=== PATIENT | male | born 1960 | race African-American/Black ===

== ENCOUNTER 2019-02-03 17:42 | Emergency (ER) | payer OTHER ==
--- NOTE | 2019-02-03 17:51 | PDOC ---
History of Present Illness - General Chief Complaint: Back Pain Stated Complaint: BACK PAIN Time Seen by Provider: 02/03/19 17:48 History Source: Patient Exam Limitations: No Limitations - History of Present Illness Initial Comments: 02/03/19 18:21 Chief complaint: Pelvic and chest pain Patient is a 58-year-old male who had prostate surgery for cancer 1 year ago with radiation and is on Lupron for 1 year. Patient states that he gets some body aches on and off, headache from the Lupron but in the last 3 days he has had severe right-sided chest pain that hurts when he breathes or moves. Patient also complaining of pelvic pain. No fever. Patient looks very uncomfortable. Patient drove back and forth to [place] during this time. Denies any leg swelling or calf pain no family history of blood clots. GENERAL/CONSTITUTIONAL: No fever, weakness. dizziness HEAD, EYES, EARS, NOSE AND THROAT: No change in vision. No ear pain or discharge. No sore throat. CARDIOVASCULAR: +chest pain RESPIRATORY: No shortness of breath or cough GASTROINTESTINAL: No pain, nausea, vomiting, diarrhea or constipation GENITOURINARY: No dysuria MUSCULOSKELETAL: No neck or back pain SKIN: No rash NEUROLOGIC: No headache, vertigo, loss of consciousness, or loss of sensation. GENERAL: The patient is awake, alert, and fully oriented, in no acute distress. HEAD: Normal with no signs of trauma. EYES: Pupils equal, round and reactive to light, sclera anicteric, conjunctiva clear. ENT: pharynx: no erythema, no exudate, uvula midline NECK: supple CHEST: clear, + right lower axilla rib tenderness, no subcutaneous emphysema, no ecchymosis, rr ABD: soft, nontender BACK: no tenderness or signs of injury EXTREMITIES: Normal range of motion, no edema. NEUROLOGICAL: Normal speech, normal gait. Cranial nerves II through XII grossly intact, no gross focal abnormalities SKIN: Warm, Dry Past History - Past Medical History Allergies/Adverse Reactions: Allergies Allergy/AdvReac Type Severity Reaction Status Date / Time No Known Allergies Allergy Verified 02/03/19 17:53 COPD: No Dialysis: No - Surgical History Cholecystectomy: No Neurologic Surgery: No - Immunization History Immunization Up to Date: No ED Treatment Course - LABORATORY CBC & Chemistry Diagram: 02/03/19 18:30 02/03/19 18:30 Medical Decision Making - Medical Decision Making 02/03/19 18:35 58-year-old male with history of prostate cancer treated with surgery and radiation, on Lupron for 1 year with exquisite right axilla chest pain, pleuritic in nature worse with breathing and movement. pt on hormone therapy, Patient also traveled to [place] and back during this time. Patient is not hypoxic. He also has pelvic/hip pain. Not clear if this is all muscular skeletal or related to his disease. EKG, basic labs, chest x-ray and hip/ pelvic x-ray ordered, patient ordered morphine for pain given the level of discomfort. Signed out to [facility] for further evaluation 02/03/19 19:27 Discharge - Discharge Information Problems reviewed: Yes Clinical Impression/Diagnosis: Back pain Qualifiers: Back pain location: thoracic back pain Chronicity: acute Back pain laterality: right Qualified Code(s): M54.6 - Pain in thoracic spine Condition: Stable - Follow up/Referral Referrals: Dolores Remy MD [Primary Care Provider] - - Patient Discharge Instructions - Post Discharge Activity
[2019-02-03 17:54] VITALS: BMI 25.4
--- NOTE | 2019-02-03 17:54 | PDOC ---
Rapid Medical Evaluation Chief Complaint: Back Pain Time Seen by Provider: 02/03/19 17:48 Medical Evaluation: 02/03/19 17:49 I have performed a brief in-person evaluation of this patient. The patient presents with a chief complaint of: right chest wall and back pain Pertinent physical exam findings: walks with limp/ crooked, tightness to lumbar paravertebral muscles , no fevers / no problems with bowel or bladder I have ordered the following: nothing The patient will proceed to the ED for further evaluation. 02/03/19 17:54 Discharge Disposition - Diagnosis Back pain Qualifiers: Back pain location: low back pain - Discharge Dispostion Condition at time of disposition: Stable - Referrals - Patient Instructions - Post Discharge Activity
[2019-02-03] MEDS ORDERED: morphine CARPU-JECT 4 MG/1 ML DISP.SYRIN IVPUSH ONE (18:30)
[2019-02-03 18:50] LABS: BASO % 0.9 % (0-2.0); EOS % 1.3 % (0-4.5); HEMATOCRIT 31.8 % (35.4-49); HEMOGLOBIN 10.6 GM/dL (11.7-16.9); LYMPH % 22.3 % (8-40); MCH 27.4 pg (25.7-33.7); MCHC 33.1 g/dl (32.0-35.9); MEAN CELL VOLUME 82.7 fl (80-96); MEAN PLT VOLUME 8.6 fl (7.5-11.1); MONO % 9.6 % (3.8-10.2); NEUT % 65.9 % (42.8-82.8); PLATELET COUNT 206 K/MM3 (134-434); RBC 3.85 M/mm3 (4.00-5.60); RDW 14.9 % (11.9-15.9); WHITE BLOOD COUNT 4.1 K/mm3 (4.0-10.0)
[2019-02-03] MEDS ORDERED: morphine SULFATE 4 MG/ML VIAL ONE (18:52)
--- NOTE | 2019-02-03 19:00 | PDOC ---
History of Present Illness - General Chief Complaint: Back Pain Stated Complaint: BACK PAIN Time Seen by Provider: 02/03/19 17:48 History Source: Patient Exam Limitations: No Limitations Past History - Past Medical History Allergies/Adverse Reactions: Allergies Allergy/AdvReac Type Severity Reaction Status Date / Time No Known Allergies Allergy Verified 02/03/19 17:53 COPD: No Dialysis: No - Surgical History Cholecystectomy: No Neurologic Surgery: No - Immunization History Immunization Up to Date: No - Psycho Social/Smoking Cessation Hx Smoking History: Never smoked Have you smoked in the past 12 months: No Information on smoking cessation initiated: No Hx Alcohol Use: No Drug/Substance Use Hx: No *Physical Exam - Vital Signs Last Vital Signs Temp Pulse Resp BP Pulse Ox 98.1 F 93 H 18 136/77 100 02/03/19 17:50 02/03/19 17:50 02/03/19 17:50 02/03/19 17:50 02/03/19 17:50 - Physical Exam General Appearance: No: Apparent Distress Respiratory/Chest: positive: Lungs Clear, Normal Breath Sounds. negative: Respiratory Distress Cardiovascular: positive: Regular Rhythm, Regular Rate, S1, S2. negative: Murmur Musculoskeletal: negative: CVA Tenderness, Muscle Spasm, Vertebral Tenderness Extremity: negative: Pedal Edema, Swelling, Calf Tenderness Neurologic: positive: Alert, Normal Mood/Affect, Other (normal gait) ED Treatment Course - LABORATORY CBC & Chemistry Diagram: 02/03/19 18:30 02/03/19 18:30 - ADDITIONAL ORDERS Additional order review: 02/03/19 18:30 RBC 3.85 L MCV 82.7 MCHC 33.1 RDW 14.9 MPV 8.6 Neutrophils % 65.9 Lymphocytes % 22.3 Monocytes % 9.6 Eosinophils % 1.3 Basophils % 0.9 - RADIOLOGY Radiology Studies Ordered: Category Date Time Status CHEST CTA [CT] Stat CT Scan 02/03/19 18:57 Ordered SPINE-LUMBAR SACRAL [RAD] Stat Radiology 02/03/19 18:57 Ordered - Medications Given in the ED: ED Medications Discontinued Medications Generic Name Dose Route Start Last Admin Trade Name Freq PRN Reason Stop Dose Admin Morphine Sulfate 4 mg 02/03/19 18:30 02/03/19 18:55 Morphine Injection - IVPUSH 02/03/19 18:31 4 mg ONCE ONE Administration Medical Decision Making - Medical Decision Making Patient signed out to 02/03/19 19:01 Discharge - Discharge Information Clinical Impression/Diagnosis: Back pain Qualifiers: Back pain location: low back pain Condition: Stable - Follow up/Referral Referrals: Dolores Remy MD [Primary Care Provider] - - Patient Discharge Instructions - Post Discharge Activity
[2019-02-03 19:02] LABS: INR 1.1 (0.83-1.09)
[2019-02-03 19:05] LABS: ACTIVATED PTT 31.7 SECONDS (25.2-36.5)
--- NOTE | 2019-02-03 19:06 | PDOC ---
*Physical Exam - Vital Signs Last Vital Signs Temp Pulse Resp BP Pulse Ox 98.1 F 93 H 18 136/77 100 02/03/19 17:50 02/03/19 17:50 02/03/19 17:50 02/03/19 17:50 02/03/19 17:50 - Physical Exam General Appearance: No: Apparent Distress Respiratory/Chest: positive: Lungs Clear, Normal Breath Sounds. negative: Respiratory Distress Cardiovascular: positive: Regular Rhythm, Regular Rate, S1, S2. negative: Murmur Gastrointestinal/Abdominal: positive: Normal Bowel Sounds, Soft. negative: Tender, Distended, Guarding, Rebound Musculoskeletal: negative: CVA Tenderness, Muscle Spasm, Vertebral Tenderness Extremity: negative: Pedal Edema, Swelling, Calf Tenderness Neurologic: positive: Alert, Normal Mood/Affect, Other (normal gait) ED Treatment Course - LABORATORY CBC & Chemistry Diagram: 02/03/19 18:30 02/03/19 18:30 - ADDITIONAL ORDERS Additional order review: 02/03/19 18:30 RBC 3.85 L MCV 82.7 MCHC 33.1 RDW 14.9 MPV 8.6 Neutrophils % 65.9 Lymphocytes % 22.3 Monocytes % 9.6 Eosinophils % 1.3 Basophils % 0.9 - RADIOLOGY Radiology Studies Ordered: Category Date Time Status CHEST CTA [CT] Stat CT Scan 02/03/19 18:57 Ordered SPINE-LUMBAR SACRAL [RAD] Stat Radiology 02/03/19 18:57 Ordered - Medications Given in the ED: ED Medications Discontinued Medications Generic Name Dose Route Start Last Admin Trade Name Freq PRN Reason Stop Dose Admin Morphine Sulfate 4 mg 02/03/19 18:30 02/03/19 18:55 Morphine Injection - IVPUSH 02/03/19 18:31 4 mg ONCE ONE Administration Medical Decision Making - Medical Decision Making Patient signed out to me by IVA Benedict Briefly, this is 58 y/o M hx of prostate CA s/p surgery 1 year ago and currently on Lupron presents with R sided back pain radiating at times to R chest and sometimes to R hip x 5-6 days. Pain is worse with movement of body and with inspiration. Patient took Motrin 1 time with alleviation of pain but was uncertain if he could take it again. Denies fever, cough, abd pain, n/v/d, urinary complaints. Denies trauma, heavy lifting. Patient follows with oncologist, Dr. Rivera, at [facility]. EKG: NSR at 75 bpm, no ST-T changes Could be MSK pain but also with risk factors for PE Labs sent from fast track, given Morphine from fast track Will do CTA chest given risk factors Will also do xray of spine and hip/pelvis to r/o osteolytic bone lesions, possible pathologic bone fracture 02/03/19 19:02 Xrays reviewed w/ attending - negative for acute findings Pending results of CTA 02/03/19 19:49 CTA negative for PE However, notable for osteolytic and osteoblastic lesions laong mid and thoracic spine along with minimal pathologic T12 compression fracture along the right lateral half Findings concerning for metastatic disease Spoke to NSGY, Dr. Rivera, who states he will review images and call back 02/03/19 20:36 D/W Dr. Rivera, who is concerned regarding CT read; mentions epidural tumor along T12 and recommends patient getting MRI of spine as well Patient taken for MRI - getting MRI T&L spine without contrast as d/w Dr. Rivera Per Dr. Rivera, also recommend to make patient NPO after MN and get T&S in case patient will need to go to OR 02/03/19 21:02 Images of MRI reviewed with Dr. Rivera - shows tumor compressing along T12 As d/w Dr. Rivera, will admit patient and he will see patient in the morning 02/03/19 21:50 Patient states he would prefer to speak to his doctor at [facility] first and does not prefer to be admitted here Explained that we would still discuss the case with his oncologist at [facility] but patient states he prefers to speak to his doctor personally and would rather not go through 3rd republic[employer] Case was d/w Dr. Rivera Patient understands risks for leaving AMA; is A&OX3 and has capacity to make decisions Is signing out AMA 02/03/19 22:37 Discharge - Discharge Information Problems reviewed: Yes Clinical Impression/Diagnosis: Thoracic spine tumor Condition: Stable Disposition: AGAINST MEDICAL ADVICE - Additional Discharge Information Prescription Drug Monitoring Program (I-STOP) results: I-STOP not reviewed - Follow up/Referral Referrals: Dolores Remy MD [Primary Care Provider] - - Patient Discharge Instructions Additional Instructions: Thank you for choosing [facility]. It was a pleasure taking care of you. You were noted to have spinal tumor along thoracic spine compressing your spine. For this, you were recommended to stay in hospital and see neurosurgery for possible surgery Please be sure to follow-up with your oncologist for further care. Return to the Emergency Department if your symptoms worsen or persist, you have fever, shortness of breath, chest pain, severe abdominal pain, vomiting, weakness of extremities (arms and/or legs), unable to walk, unable to control bowel or bladder movements, numbness around groin or other concerning symptoms. - Post Discharge Activity
[2019-02-03 19:15] LABS: ALBUMIN 3.5 g/dl (3.4-5.0); BILIRUBIN,TOTAL 0.3 mg/dL (0.2-1); BLOOD UREA NITROGEN 21.2 mg/dL (7-18); CALCIUM 8.7 mg/dL (8.5-10.1); CREATININE 0.8 mg/dL (0.55-1.3); POTASSIUM 4.4 mmol/L (3.5-5.1); TOT PROT 7.4 g/dl (6.4-8.2)
[2019-02-03 19:21] VITALS: TEMP 98.3
[2019-02-03 19:23] VITALS: BP 123/67
[2019-02-03 19:24] VITALS: PULSE 76
--- NOTE | 2019-02-04 12:19 | EKG ---
Test Reason : Blood Pressure : / mmHG Vent. Rate : 075 BPM Atrial Rate : 075 BPM P-R Int : 176 ms QRS Dur : 082 ms QT Int : 368 ms P-R-T Axes : 049 026 035 degrees QTc Int : 410 ms NORMAL SINUS RHYTHM POSSIBLE LEFT ATRIAL ENLARGEMENT Confirmed by LAURA VILLA MD ([id number]) on 02/04/2019 12:19:12 PM Referred By: Confirmed By:LAURA VILLA MD
== END 2019-02-03 22:00 | disposition left against medical advice (07) ==
LOC: JER 17:42 → JERFT 17:42 → JER 22:00
PROC: 3E033NZ Introduction of Analgesics, Hypnotics, Sedatives into Peripheral Vein, Percutaneous Approach (ICD-10-PCS; principal; 2019-02-03)
DX: D49.2 Neoplasm of unspecified behavior of bone, soft tissue, and skin (principal); Z85.46 Personal history of malignant neoplasm of prostate; Z79.818 Long term (current) use of other agents affecting estrogen receptors and estrogen levels
CPT/HCPCS: 36415; 71275-TC; 72100-TC-FY; 72146-TC; 72148-TC; 73523-TC-FY; 80053; 85025; 85610; 85730; 93005; 93010; 99283-25